=== PATIENT | female | born 1970 | race Caucasian/White ===

== ENCOUNTER 2021-06-08 11:09 | Emergency (ER) | payer OTHER ==
[~2021-06-08] VITALS: Ht 162.6 cm; Wt 68.0 kg
[2021-06-08 11:39] VITALS: BP 114/92
--- NOTE | 2021-06-08 11:43 | NUR ---
PT TO LOBBY.
--- NOTE | 2021-06-08 13:40 | NUR ---
PT AMBULATED TO BED 5.
--- NOTE | 2021-06-08 13:43 | NUR ---
50 YEAR OLD FEMALE COMPLAINS OF NECK, SHOULDER, BILATERAL LEG PAIN X 1 MONTH. PT STATES PAIN HAS BEEN PROGRESSIVELY GETTING MUCH WORSE THROUGHOUT THE DAY. PT STATES DIFFICULTY MOVING DUE TO PAIN. PT STATES SHE IS HERE FOR MRI; PT INFORMED THAT WE DO NOT HAVE MRI MACHINE HERE. PT AOX4, BREATHING EVEN AND UNLABORED, SKIN WARM AND DRY. BED IN LOWEST POSITION, LOCKED, BED RAIL UPX1. PMH - HYSTERECTOMY ALLERGIES - NKA
--- NOTE | 2021-06-08 13:43 | NUR ---
Angi cancino in [facility] - 06/08/21 at 1343 by MEDJJ PT AMBULATED TO BED AT THIS TIME
--- NOTE | 2021-06-08 13:52 | NUR ---
PT ASKED IF WE HAVE MRI MACHINE. TOLD PT WE DO NOT PATIENT LEFT WITHOUT BEING SEEN BY DR. CALDERÓN. NO FURTHER CARE PROVIDED FOR PATIENT.
[2021-06-08 14:01] VITALS: BP 114/92
== END 2021-06-08 13:52 | disposition left against medical advice (07) ==
LOC: MED 11:09
DX: M79.604 Pain in right leg (principal); M79.605 Pain in left leg; Z53.21 Procedure and treatment not carried out due to patient leaving prior to being seen by health care provider